=== PATIENT | female | born 1990 | race Hispanic/Latino ===

== ENCOUNTER 2017-07-07 19:29 | Emergency (ER) | payer OTHER ==
[2017-07-07 19:58] VITALS: BP 93/53; PULSE 85; RESP 16; TEMP 98.9; O2SAT 100
[2017-07-07 20:44] LABS: BASO % 0.3 % (0.0-2.0); EOS # 0.1 K/uL (0.0-0.7); EOS % 0.6 % (0.0-4.0); HEMATOCRIT 34.1 % (34.0-47.0); LYMPH # 1.5 K/uL (1.0-4.3); LYMPH % 18.9 % (20.0-40.0); MEAN CELL VOLUME 88.3 fl (81.0-99.0); MEAN PLATELET VOLUME 8.4 fl (7.2-11.7); MONO # 0.7 K/uL (0.0-0.8); MONO % 8.9 % (0.0-10.0); NEUT # 5.7 K/uL (1.8-7.0); NEUT % 71.3 % (50.0-75.0); RED CELL DISTRIBUTION WIDTH 12.5 % (11.5-14.5)
--- NOTE | 2017-07-07 20:47 | ED PDOC ---
HPI: Female Pain Time Seen by Provider: 07/07/17 20:13 Chief Complaint (Nursing): Abdominal Pain Chief Complaint (Provider): /bleeding History Per: Patient History/Exam Limitations: no limitations Additional Complaint(s): 26yo F in ED for eval of vaginal bleeding x 1 days only noted when wiping with back pain and abd lower cramping. no US performed to date. no dizziness SOB or chest pain. Abnormal Vaginal Bleeding: Yes : 1 Para: 0 Miscarriage: 0 Past Medical History Reviewed: Historical Data, Nursing Documentation, Vital Signs Vital Signs: Last Vital Signs Temp 98.9 F 07/07/17 19:55 Pulse 85 07/07/17 19:55 Resp 16 07/07/17 19:55 BP 93/53 L 07/07/17 19:55 Pulse Ox 100 07/07/17 19:55 - Medical History PMH: No Chronic Diseases - Family History Family History: States: No Known Family Hx - Allergies Allergies/Adverse Reactions: Allergies Allergy/AdvReac Type Severity Reaction Status Date / Time No Known Allergies Allergy Verified 07/07/17 19:58 Review of Systems ROS Statement: Except As Marked, All Systems Reviewed And Found Negative Constitutional: Negative for: Fever, Chills Genitourinary Female: Positive for: Vaginal Bleeding. Negative for: Pelvic Pain Physical Exam - Reviewed Nursing Documentation Reviewed: Yes Vital Signs Reviewed: Yes - Physical Exam Appears: Positive for: Well, Non-toxic, No Acute Distress Skin: Positive for: Normal Color, Warm, DRY Cardiovascular/Chest: Positive for: Regular Rate, Rhythm Respiratory: Positive for: CNT, Normal Breath Sounds Gastrointestinal/Abdominal: Positive for: Normal Exam, Bowel Sounds, Soft, Tenderness (mild suprapubic cramping. ) Neurologic/Psych: Positive for: Alert, Oriented - Laboratory Results Result Diagrams: 07/07/17 20:30 07/07/17 20:30 - ECG O2 Sat by Pulse Oximetry: 100 - Progress ED Course And Treament: r/o threatened Orders Category Date Time Status ABO/RH TYPE Stat BBK 07/07/17 20:11 Uncollected TYPE AND SCREEN Stat BBK 07/07/17 20:30 Received BETA-HCG,QUANTITATIVE Stat Chem 07/07/17 20:30 Received COMP METABOLIC PANEL Stat Chem 07/07/17 20:30 Received CBC (WITH DIFFERENTIAL) Stat MARITZA 07/07/17 20:30 Received URINALYSIS Stat URINALYSIS 07/07/17 20:30 Received 1ST TRIMESTER SINGLE [US] Stat US 07/07/17 20:11 Ordered USresults: IMPRESSION: Single intrauterine gestation with an approximate gestational age of 7 weeks and 1 day. cardiac activity is identified. Small implantation hemorrhage. The cervix is closed. Thank you for allowing us to participate in the care of your patient. Dictated and Authenticated by: Helena Tate MD 07/07/2017 9:41 PM Eastern Time ([place] & [place]) Medical Decision Making Medical Decision Making: pt with normal IUP, however advised strongly to rest, and f/u obgyn. advised that she abstains from strenuous activities . pt given copies of all lab results. 07/07/17 07/07/17 07/07/17 20:30 20:30 20:30 WBC 8.0 D RBC 3.87 Hgb 11.6 L Hct 34.1 MCV 88.3 MCH 30.0 MCHC 34.0 RDW 12.5 Plt Count 198 MPV 8.4 Neut % (Auto) 71.3 Lymph % (Auto) 18.9 L Addison % (Auto) 8.9 Eos % (Auto) 0.6 Baso % (Auto) 0.3 Neut # 5.7 Lymph # 1.5 Addison # 0.7 Eos # 0.1 Baso # 0.0 Sodium Potassium Chloride Carbon Dioxide Anion Gap BUN Creatinine Est GFR ( Amer) Est GFR (Non-Af Amer) Random Glucose Calcium Total Bilirubin AST ALT Alkaline Phosphatase Total Protein Albumin Globulin Albumin/Globulin Ratio Beta HCG, Quant Urine Color Naz Urine Clarity Cloudy Urine pH 7.0 Ur Specific [place] 1.012 Urine Protein 100 Urine Glucose (UA) Neg Urine Ketones Trace Urine Blood Large Urine Nitrate Negative Urine Bilirubin Negative Urine Urobilinogen 0.2-1.0 Ur Leukocyte Esterase Neg Urine RBC (Auto) 10 H Urine Microscopic WBC 3 Ur Squamous Epith Cells 9 H Urine Bacteria Occ H Blood Type O POSITIVE Antibody Screen Negative BBK History Checked No verified bt 07/07/17 20:30 WBC RBC Hgb Hct MCV MCH MCHC RDW Plt Count MPV Neut % (Auto) Lymph % (Auto) Addison % (Auto) Eos % (Auto) Baso % (Auto) Neut # Lymph # Addison # Eos # Baso # Sodium 138 Potassium 4.0 Chloride 105 Carbon Dioxide 24 Anion Gap 13 BUN 12 Creatinine 0.5 L Est GFR ( Amer) > 60 Est GFR (Non-Af Amer) > 60 Random Glucose 82 Calcium 9.6 Total Bilirubin 0.4 AST 23 ALT 35 Alkaline Phosphatase 50 Total Protein 7.3 Albumin 4.3 Globulin 3.0 Albumin/Globulin Ratio 1.4 Beta HCG, Quant 320625.00 Urine Color Urine Clarity Urine pH Ur Specific [place] Urine Protein Urine Glucose (UA) Urine Ketones Urine Blood Urine Nitrate Urine Bilirubin Urine Urobilinogen Ur Leukocyte Esterase Urine RBC (Auto) Urine Microscopic WBC Ur Squamous Epith Cells Urine Bacteria Blood Type Antibody Screen BBK History Checked Disposition - Clinical Impression Clinical Impression: Abdominal pain during - Patient ED Disposition Is Patient to be Admitted: No Counseled Patient/Family Regarding: Studies Performed, Diagnosis, Need For Followup - Disposition [facility] Disposition: Routine/Home Disposition Time: 22:43 Condition: STABLE Instructions: First Trimester Vaginal Bleed (ED)
[2017-07-07 20:50] LABS: URINE BACTERIA OCC (<OCC); URINE BILIRUBIN NEGATIVE (NEGATIVE); URINE BLOOD LARGE (NEGATIVE); URINE COLOR AMBER (YELLOW); URINE GLUCOSE (UA) NEG (Normal); URINE KETONE TRACE mg/dL (NEGATIVE); URINE LEUKOCYTE ESTERASE NEG Leu/uL (Negative); URINE PROTEIN 100 mg/dL (NEGATIVE); URINE UROBILINOGEN 0.2-1.0 mg/dL (0.2-1.0); WBC URINE 3 /hpf (0-5)
[2017-07-07 20:52] LABS: RBC URINE 10 /hpf (0-3)
[2017-07-07 21:03] LABS: ALB/GLOB RATIO 1.4 (1.0-2.1); ALKALINE PHOSPHATASE 50 U/L (38-126); ALT/SGPT 35 U/L (9-52); AST/SGOT 23 U/L (14-36); BILIRUBIN,TOTAL 0.4 mg/dl (0.2-1.3); BLOOD UREA NITROGEN 12 mg/dl (7-17); CALCIUM 9.6 mg/dL (8.4-10.2); CARBON DIOXIDE 24 mmol/L (22-30); CHLORIDE 105 mmol/L (98-107); GFR AFRICAN-AMERICAN > 60; GLUCOSE,RANDOM 82 mg/dL (65-105); SODIUM 138 mmol/l (132-148); TOTAL PROTEIN 7.3 G/DL (6.3-8.2)
--- NOTE | 2017-07-07 21:41 | US ---
EXAM: US Uterus, Limited CLINICAL HISTORY: 26 years old, female; Signs and symptoms; Lmp or gestational age (in weeks): 05/18/17; Antepartum complications; Hemorrhage; ; Additional info: 7 weeks preg/vaginal bleeding and cramping. TECHNIQUE: Real-time ultrasound of the maternal uterus (limited) with image documentation via transabdominal technique. COMPARISON: No relevant prior studies available. FINDINGS: A single intrauterine gestation is identified with crown-rump length measuring 10 mm, corresponding to an approximate gestational age of 7 weeks and 1 day. cardiac activity is identified at a rate of 147 beats per minute. The cervix measures 5.4 cm, and is closed. Small implantation hemorrhage is detected measuring 4.3 cm in greatest dimension. The right ovary is unremarkable in echogenicity and size measuring 3.0 x 2.0 x 3.1 cm. The left ovary is unremarkable in echogenicity and size measuring 3.4 x 2.7 x 2.7 cm. Normal blood flow is detected bilaterally. No free fluid is identified. IMPRESSION: Single intrauterine gestation with an approximate gestational age of 7 weeks and 1 day. cardiac activity is identified. Small implantation hemorrhage. The cervix is closed.
== END 2017-07-07 23:20 | disposition home or self-care (01) ==
LOC: H.ER 19:29
DX: O26.891 Other specified pregnancy related conditions, first trimester (principal); O20.9 Hemorrhage in early pregnancy, unspecified; Z3A.10 10 weeks gestation of pregnancy; Z36.9 Encounter for antenatal screening, unspecified